=== PATIENT | female | born 1950 | race Caucasian/White ===

== ENCOUNTER → 2019-10-01 | Outpatient (CLI) | payer OTHER ==
--- NOTE | 2019-10-01 16:18 | Diagnostic Imaging Report ---
EXAMINATION: CHEST 2 VIEWS INDICATION: Cough, shortness of breath COMPARISON: None FINDINGS: LINES/TUBES:None LUNGS:Patchy airspace opacity in the right lower lobe. Small area of patchy opacity in the left lower lobe. PLEURA:No pleural effusion or pneumothorax. MEDIASTINUM:The cardiomediastinal silhouette appears normal in size and shape. Atherosclerotic calcifications of the thoracic aorta. BONES/SOFT TISSUES:No acute osseous injury. ABDOMEN:No free air under the diaphragm. IMPRESSION: Patchy opacities in the right lower lobe and to a much lesser extent in the left lower lobe, compatible aspiration and/or pneumonia in the proper clinical setting. RECOMMENDATIONS: Repeat AP and lateral chest radiographs in 6-8 weeks to assess for resolution. Signed by: Any Sullivan MD on 10/01/2019 4:15 PM
== END ==
LOC: RAD 15:38
DX: R05 Cough (principal); R06.02 Shortness of breath
CPT/HCPCS: 71046

== ENCOUNTER 2019-10-10 14:09 | Inpatient (IN) | payer OTHER ==
[~2019-10-10] VITALS: Ht 167.6 cm; Wt 78.5 kg
--- OUTSIDE RECORDS SUMMARY | 2019-10-10 14:12 | XMS REPORT ---
Author Author [facility] Address Unknown Phone Unavailable Care Team Providers Care Blood Bank Technician Name Role Phone MOUNIKA CALDERA Unavailable Unavailable Problems This patient has no known problems. Allergies, Adverse Reactions, Alerts This patient has no known allergies or adverse reactions. Medications This patient has no known medications. Results Test Description Test Time Test Comments Text Results Atomic Results Result Comments CHEST 2 VIEWS 2019-10-09 15:58:00 [place] [address] Patient Name: WEN SARGENT MR #: [id number] : 1950 Age/Sex: 69/F Req #: [id number] Adm Physician: Ordered by: MOUNIKA CALDERA MD Report #: [id number] Location: RAD Room/Bed: Procedure: [id number] DX/CHEST 2 VIEWS Exam Date: 10/09/19 Exam Time: 1525 REPORT STATUS: Signed TECHNIQUE: Frontal and lateral views of the chest. XENA CATION: 69-year-old woman with upper respiratory infection. COMPARISON: Chest radiographs 10/01/2019. FINDINGS: LINES/TUBES: None. LUNGS: The lungs are well inflated. Persistent patchy airspace opacities in the right lower lobe. Persistent questionable mild airspace opacities in left lower lung zone. PLEURA: No pleural effusion or pneumothorax. HEART AND MEDIASTINUM: The cardiomediastinal silhouette is within normal limits. Atherosclerotic calcifications in the thoracic aorta. SOFT TISSUES AND BONES: Unremarkable. IMPRESSION: Persistent right lower lobe pneumonia. Persistent questionable mild airspace opacities in the left lower lung zone may also represent pneumonia. RECOMMENDATION: Follow-up chest radiographs are recommended in 6-8 weeks for reassessment. Signed by: Percy Cowart MD on 10/09/2019 4:03 PM Dictated By: PERCY COWART MD 02 Transcribed By: Moises VICK on 10/09/19 160 COPY TO: MOUNIKA CALDERA MD CHEST 2 VIEWS 2019-10-01 16:14:00 [place] [address] Patient Name: WEN SARGENT MR #: [id number] : 1950 Age/Sex: 69/F Req #: [id number] Adm Physician: Ordered by: MOUNIKA CALDERA MD Report #: [id number] Location: [facility] Room/Bed: Procedure: [id number] DX/CHEST 2 VIEWS Exam Date: 10/01/19 Exam Time: 1549 REPORT STATUS: Signed EXAMINATION: CHEST 2 VIEWS INDICATION: Cough, shor tness of breath COMPARISON: None FINDINGS: LINES/TUBES:None LUNGS:Patchy airspace opacity in the right lower lobe. Small area of patchy opacity in the left lower lobe. PLEURA:No pleural effusion or pneumothorax. MEDIASTINUM:The cardiomediastinal silhouette appears normal in size and shape. Atherosclerotic calcifications of the thoracic aorta. BONES/SOFT TISSUES:No acute osseous injury. ABDOMEN:No free air under the diaphragm. IMPRESSION: Patchy opacities in the right lower lobe and to a much lesser extent in the left lower lobe, compatible aspiration and/or pneumonia in the proper clinical setting. RECOMMENDATIONS: Repeat AP and lateral chest radiographs in 6-8 weeks to assess for resolution. Signed by: Karen Wright MD on 10/01/2019 4:15 PM Dictated By: KAREN WRIGHT MD 1615 Transcribed By: RHONDA on 10/01/191614 COPY TO: MOUNIKA CALDERA MD
[2019-10-10 14:42] LABS: BASOPHILS # (AUTO) 0.1 (0.0-0.1); BASOPHILS % 0.9 % (0.0-1.0); EOSINOPHILS # (AUTO) 0.6 (0.0-0.4); EOSINOPHILS % 7.1 % (0.0-6.0); HEMATOCRIT 35.8 % (34.2-44.1); HEMOGLOBIN 11.4 g/dL (12.0-16.0); LYMPHOCYTES # (AUTO) 1.3 (1.0-3.2); LYMPHOCYTES % 17.1 % (18.0-39.1); MEAN CORPUSCULAR HEMOGLOBIN 31.1 pg (28-32); MEAN CORPUSCULAR HGB CONC 31.8 g/dL (31-35); MEAN CORPUSCULAR VOLUME 97.5 fL (81-99); MONOCYTES # (AUTO) 0.6 (0.2-0.8); MONOCYTES % 7.2 % (4.4-11.3); NEUTROPHILS # (AUTO) 5.3 (2.1-6.9); NEUTROPHILS % 67.3 % (38.7-80.0); PLATELET COUNT 422 x10e3/uL (140-360); RED BLOOD COUNT 3.67 x10e6/uL (3.6-5.1); RED CELL DISTRIBUTION WIDTH 13.9 % (11.7-14.4)
[2019-10-10] MEDS ORDERED: ALBUTEROL SULFATE HFA 8GM INHALATION AEROSOL INH STA (14:44)
[2019-10-10] MEDS ORDERED: ALBUTEROL SULFATE HFA 8GM INHALATION AEROSOL INH PRN (15:00)
[2019-10-10 15:03] LABS: ANION GAP 11.2 mmol/L (8-16); BLOOD UREA NITROGEN 11 mg/dL (7-26); BUN/CREATININE RATIO 15 (6-25); CALCIUM 8.8 mg/dL (8.4-10.2); CARBON DIOXIDE 28 mmol/L (22-29); CHLORIDE 103 mmol/L (98-107); CREATININE, SERUM 0.74 mg/dL (0.57-1.11); EST GLOMERULAR FILTRATION RATE > 60 ML/MIN (60-); GLUCOSE 97 mg/dL (74-118); POTASSIUM 4.2 mmol/L (3.5-5.1); SODIUM 138 mmol/L (136-145)
--- NOTE | 2019-10-10 16:20 | Diagnostic Imaging Report ---
CT of the chest, without contrast, 10/10/2019. History: Cough for 2 weeks. Comparison: Chest x-ray 10/09/2019. Technique: Multidetector CT scanning of the chest was performed from the level of the apices to the upper abdomen without contrast. Coronal and sagittal multiplanar reformations were obtained. RADIATION DOSE: Total DLP: 461 mGy*cm Dose modulation, iterative reconstruction, and/or weight based adjustment of the mA/kV was utilized to reduce the radiation dose to as low as reasonably achievable. Discussion: Evaluation is limited without IV contrast. Chest: The heart, aorta, and pulmonary vessels are normal in size. 1 cm right paratracheal lymph node is present, likely reactive. The thyroid is unremarkable. There is minimal bilateral upper lobe paraseptal emphysema. Peripheral posterior groundglass opacities are present throughout the right upper, middle, and lower lobes with patchy consolidation in the right lower lobe. There is no evidence of pleural effusion. Scattered areas of ground glass opacities are present in the peripheral aspects of the left lung. Limited evaluation of the upper abdomen shows normal adrenal glands. Bones and soft tissues: No acute abnormality. IMPRESSION: Bilateral multifocal pneumonia, most severely affecting the right lower lobe. Atypical/viral pneumonia cannot be excluded. The findings were discussed with Dr. Woodruff at 1615 on 10/10/2019. Signed by: Juan Alberto Montes De Oca on 10/10/2019 4:16 PM
[2019-10-10] MEDS ORDERED: VANCOMYCIN HCL 1GM/NS 250 ML BAG IV SCH (16:30)
[2019-10-10] MEDS: CEFEPIME 1GM/NS 0.9% 50 ML 50 ML IV SCH (16:59)
[2019-10-10] MEDS ORDERED: VANCOMYCIN 1GM/NS 250 ML 250 ML IV SCH (17:30)
[2019-10-10] MEDS ORDERED: BACLOFEN5 MG PO (17:56)
[2019-10-10] MEDS ORDERED: BENAZEPRIL HCL10 MG PO (17:56)
[2019-10-10] MEDS ORDERED: DIAZEPAM5 MG PO (17:56)
[2019-10-10] MEDS ORDERED: HYDROCODON-ACE1 EAC9 PO (17:56)
[2019-10-10] MEDS ORDERED: ESCITALOPRAM OX20 MG PO (17:56)
[2019-10-10] MEDS ORDERED: ALBUTEROL/IPRATROPIUM 3 ML NEB NEB PRN (18:45)
[2019-10-10] MEDS ORDERED: DIAZEPAM 5 MG TAB PO PRN (18:45)
[2019-10-10 20:00] VITALS: BP 114/55
[2019-10-10 20:15] VITALS: BP 114/55
[2019-10-10] MEDS: HYDROCODONE/APAP 10MG-325MG TAB PO PRN (20:30)
[2019-10-10] MEDS ORDERED: IPRATROPIUM/ALBUTEROL SULFATE 4 GM INH INH PRN (20:45)
--- NOTE | 2019-10-10 21:00 | NUR ---
pulmonary [id number] atypical pneumonia, 2 week prodrome. serum eosinophilia, ?due to abx/meds ?r/o other former heavy smoker Thanks.
--- NOTE | 2019-10-10 21:47 | Consultation ---
DATE OF CONSULTATION: 10/10/2019 Pulmonary Medicine Consult REASON FOR REFERRAL: Pneumonia. HISTORY OF PRESENT ILLNESS: Ms. Gonzalez is a pleasant 69-year-old female with pneumonia. The patient presented to [facility] after having refractoriness in condition. The patient originally had symptoms began about 2 weeks ago. The patient had shortness of breath and coughing. The patient had initial fever that she measured per that one day. She had some mild body aches. At that point, she did eventually get a chest x-ray on October 01, 2019. Due to getting Z-Pedrito and Levaquin with poor responsiveness, she came back for a followup appointment and had another chest x-ray done, which demonstrated persistence of vdlrblwl-vm-lyerd lung infiltrate. She was referred to the emergency room and for further care. CT of chest demonstrated scant left upper lobe, mostly peripheral alveolar/particular subpleural opacities that were mild, but a ceahjfyo-pp-yreja right lower lobe and some right upper lobe ground-glass/consolidative pneumonia. The patient was recommended for hospitalization. PAST MEDICAL HISTORY: Hypertension, depression, chronic back pain, hip replacement. MEDICATIONS: Medication list reviewed per the chart record. ALLERGIES: PENICILLIN. SOCIAL HISTORY: The patient smoked from age [age], two packs per day. No alcohol. No drugs. 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 She has not had any recent trips and she is mostly at home. However, her leaves the house on a daily basis for about 45 minutes to go to the grocery store. Her still works as a computer/grain mill products inspector of plants, but he is recently able to work at home. FAMILY HISTORY: Noncontributory. REVIEW OF SYSTEMS: GENERAL: No weight changes. OPHTHALMOLOGIC: No floaters. ENT: No mouth ulcers. ENDOCRINE: No thyroid disease. PULMONARY: No asthma. CARDIAC: No OR. GI: No diarrhea. : No blood in urine. NEUROLOGIC: No seizures. DERMATOLOGIC: No rash. PSYCHIATRIC: No depression. OBJECTIVE: VITAL SIGNS: Afebrile, vital signs noted, reviewed per the chart record. GENERAL: In no acute distress, alert and calm. HEENT: Normocephalic, atraumatic. NECK: Supple. Throat midline. LUNGS: Bilateral air entry, limited, rare rhonchi. CARDIOVASCULAR: S1, S2. No murmurs, rubs, or gallops. ABDOMEN: Soft, nontender. EXTREMITIES: No clubbing, no cyanosis, and no edema. INTEGUMENT: No rash. No purpura. LABORATORY DATA: White count 7.8, hematocrit 36, platelets 422. 63% neutrophils, 17% lymphocytes, 7.1% eosinophils. 4.2 potassium, 11 BUN, creatinine 0.7. IMPRESSION: 1. Pneumonia, prodrome 2 weeks symptoms. Highest differential diagnosis includes atypical viral pneumonia. However, differential diagnosis includes other community-acquired pneumonia versus other more indolent pathogens, especially noting background of serum eosinophilia with 600 cells per high-powered field. 2. Serum eosinophilia, 600 cells per high-power field or 7.1%. 3. Chronic former smoker. 4. Hypertension. 5. Depression. 6. History of back pain. PLAN: Give antibiotics for refractory pneumonia including cefepime and vancomycin. The patient will also have viral panel sent off including for novel coronavirus. The patient will have LFTs, LDH, CRP/sedimentation rate checked. The patient with unclear reasons for the eosinophilia, but could be due to antibiotics. We will repeat in short interim. Consideration of bronchoscopy can be done in the future, but we will prefer to wait for any viral panel to be done before considering. The patient is getting better she says subjectively, so we will follow noting this. Thank you very much, Dr. Luis, for this consult. Please call for questions. MD ROSIE Thornton/BEATRIZ /[id number]
[2019-10-10] MEDS: DIPHENHYDRAMINE HCL 25 MG CAP PO PRN (22:20)
[2019-10-10 23:01] VITALS: BP 114/55
[2019-10-10] MEDS ORDERED: PNEUMOCOCCAL VACCINE POLYVALENT 23 MCG/0.5 ML VIAL IM SCH (23:08)
[2019-10-10] MEDS ORDERED: INFLUENZA VIRUS VAC SPLIT INJ 0.5 ML SYR IM SCH (23:08)
[2019-10-11] VITALS (8 sets, daily range): BP systolic 117–134; BP diastolic 58–80
[2019-10-11] MEDS: CEFEPIME 1GM/NS 0.9% 50 ML 50 ML IV SCH (05:31)
[2019-10-11] MEDS: HYDROCODONE/APAP 10MG-325MG TAB PO PRN ×3 (05:32→18:40)
[2019-10-11 05:33] LABS: BASOPHILS # (AUTO) 0.1 (0.0-0.1); EOSINOPHILS # (AUTO) 0.8 (0.0-0.4); EOSINOPHILS % 11.3 % (0.0-6.0); HEMOGLOBIN 11.7 g/dL (12.0-16.0); LYMPHOCYTES # (AUTO) 1.8 (1.0-3.2); LYMPHOCYTES % 24.4 % (18.0-39.1); MEAN CORPUSCULAR HGB CONC 31.6 g/dL (31-35); MEAN CORPUSCULAR VOLUME 98.1 fL (81-99); MONOCYTES # (AUTO) 0.6 (0.2-0.8); MONOCYTES % 8.2 % (4.4-11.3); NEUTROPHILS % 54.7 % (38.7-80.0); PLATELET COUNT 396 x10e3/uL (140-360); RED BLOOD COUNT 3.77 x10e6/uL (3.6-5.1)
[2019-10-11 05:46] LABS: ANION GAP 10.2 mmol/L (8-16); BLOOD UREA NITROGEN 11 mg/dL (7-26); BUN/CREATININE RATIO 15 (6-25); CALCIUM 8.9 mg/dL (8.4-10.2); CARBON DIOXIDE 27 mmol/L (22-29); CHLORIDE 105 mmol/L (98-107); CREATININE, SERUM 0.72 mg/dL (0.57-1.11); EST GLOMERULAR FILTRATION RATE > 60 ML/MIN (60-); GLUCOSE 90 mg/dL (74-118); POTASSIUM 4.2 mmol/L (3.5-5.1); SODIUM 138 mmol/L (136-145)
[2019-10-11 06:07] LABS: ALBUMIN 2.8 g/dL (3.5-5.0); BILIRUBIN,DIRECT 0.1 mg/dL (0.0-0.5)
--- NOTE | 2019-10-11 06:24 | NUR ---
Dr. Laureano's answering service called regarding consult.
[2019-10-11] MEDS ORDERED: BACLOFEN 5 MG PO SCH (09:00)
[2019-10-11] MEDS ORDERED: NON-FORMULARY MEDICATION (Escitalopram Oxalate 20 MG) PO SCH (09:00)
[2019-10-11] MEDS: ESCITALOPRAM OXALATE 10 MG TAB PO SCH (10:00)
[2019-10-11] MEDS: BACLOFEN 10 MG TAB PO SCH ×2 (10:00→17:16)
[2019-10-11] MEDS: BENAZEPRIL HCL 10 MG TAB PO SCH (10:00)
--- NOTE | 2019-10-11 12:12 | NUR ---
Nutrition Screen Note RD Recommendation for Physician: -Continue current diet per MD. Plan of Care: RD following, monitoring for tolerance and adequacy. Recommend ONS if intake is low. Nutrition reason for involvement: (MST) Primary Diagnose(s): PNA PMH: Hypertension, depression, chronic back pain, hip replacement. Ht: 66 in Wt: 173 lb BMI: 27.9 kg/m2 IBW: [address] Assessment: (10/10) 69 YOF admitted for PNA with PMH listed above. The pt is in isolation currently, per ID protocol, unable to perform malnutrition assessment. Per nurse, the pt has been eating well, no meal assessments recorded within FS as of now. Pt was here in 2015 and was 173 lbs at that time suggesting no recent weight loss. LBM: not recorded. Chart reviewed. Labs and meds reviewed. Will continue to monitor. Current Diet: cardiac Malnutrition Evaluation (10/10) Unable to perform assessment. OR Diet Education Needs Assessment: Diet education not indicated. Nutrition Care Level: low Signed: Karo Mcintyre, RD, LD
--- NOTE | 2019-10-11 13:17 | NUR ---
Pulmonary Medicine DATE 10/11/2019 SUBJECTIVE: 2 L/min oxygen by NC patient comfortable no worsening dyspnea eating ok REVIEW OF SYSTEMS: no rash, no bleeding OBJECTIVE: VITAL SIGNS: vital signs noted, reviewed per the chart record. GENERAL: NAD, alert and calm. HEENT: Normocephalic, atraumatic. NECK: Supple. Throat midline. LUNGS: Bilateral air entry, limited, rare rhonchi. CARDIOVASCULAR: S1, S2. No murmurs, rubs, or gallops. ABDOMEN: Soft, nontender. EXTREMITIES: No clubbing, no cyanosis, no edema. INTEGUMENT: No rash. No purpura. LABORATORY DATA: wbc 7.34, plt 396, cr 0.72, k 4.2 IMPRESSION: 1. Pneumonia, 2 weeks symptoms. Highest differential diagnosis includes atypical viral pneumonia. However, differential diagnosis includes other community-acquired pneumonia versus other more indolent pathogens, especially noting background of serum eosinophilia with 600 cells per high-powered field. 2. Serum eosinophilia, 600 cells per high-power field or 7.1%. 3. Chronic former smoker. 4. Hypertension. 5. Depression. 6. Hx back pain. PLAN: Continue antibiotics for refractory pneumonia including cefepime and vancomycin Recheck CXR tomorrow to assess evolution further Follow viral panel including for novel coronavirus. Follow eosinophilia. ?due to antibiotics. Thank you very much, Dr. Luis, for this consult. Please call for questions.
[2019-10-11] MEDS: ENOXAPARIN SOD INJ 40 MG/0.4 ML SYR SC SCH (17:16)
[2019-10-11] MEDS: CEFTRIAXONE SOD 2 GM/NS 100 ML 100 ML IV SCH (17:16)
[2019-10-11] MEDS: AZITHROMYCIN 500MG/NS 250 ML 250 ML IV SCH (17:16)
--- NOTE | 2019-10-11 18:06 | Consultation ---
DATE OF CONSULTATION: REASON FOR CONSULTATION: Pneumonia, concerned about COVID-19. HISTORY OF PRESENT ILLNESS: This patient, who is a very pleasant 69-year-old female, comes to emergency room with fever and chills. The patient apparently was sick for a couple weeks ago. She had body aches. She has a chest x-ray on September 30 and she got Z-Pedrito. She was told to follow up. Chest x-ray showed moderate lung infiltrate. She was sent to the emergency room, where she had a CT scan, which showed left upper lobe infiltrate, peripheral alveolar particular opacities. The patient is being admitted. The patient does have a history of hypertension, depression, chronic back pain, and hip replacement. PAST SURGICAL HISTORY: Hip replacement. ALLERGIES: PENICILLIN. SOCIAL HISTORY: Currently, there is no smoking, drug abuse, or alcohol abuse. LABORATORY DATA: White count 7.7, hemoglobin 11, and hematocrit 35. Her respiratory panel was negative. Her COVID-19 is still pending. Her sodium 138, potassium 4.2 with creatinine 0.27. The patient is currently on Lexapro, cefepime, and vancomycin. PHYSICAL EXAMINATION: GENERAL: She is currently alert and oriented. Does not seem to be in acute distress. VITAL SIGNS: Stable, currently afebrile. There is no fever since admission. Cultures were negative. HEENT: She is not icteric. NECK: Supple. CHEST: Clear. HEART: S1 and S2. No S3, S4, or murmur. ABDOMEN: Soft. IMPRESSION: Bilateral multifocal pneumonia. Agree with COVID-19. [address] on isolation for the time being until we get it. Recommended to put her on Rocephin and azithromycin. Observe the patient clinically. We will follow. MD BIB Frias/BEATRIZ /[id number]
[2019-10-11] MEDS: DIPHENHYDRAMINE HCL 25 MG CAP PO PRN (21:13)
[2019-10-12] VITALS (8 sets, daily range): BP systolic 114–128; BP diastolic 58–67
[2019-10-12] MEDS: HYDROCODONE/APAP 10MG-325MG TAB PO PRN ×4 (04:05→23:40)
--- NOTE | 2019-10-12 07:00 | NUR ---
received in stable condition, denies pain at this time, updated on poc vocied understanding, denies pain at this time call light in reach will continue to monitor
[2019-10-12] MEDS: ESCITALOPRAM OXALATE 10 MG TAB PO SCH (08:20)
[2019-10-12] MEDS: BACLOFEN 10 MG TAB PO SCH ×2 (08:20→16:30)
[2019-10-12] MEDS: BENAZEPRIL HCL 10 MG TAB PO SCH (08:50)
--- NOTE | 2019-10-12 11:55 | Diagnostic Imaging Report ---
Examination: Single AP view of the chest. COMPARISON: CT chest 10/10/2019, chest radiograph 10/09/2019 INDICATION: Pneumonia DISCUSSION: Lungs remain well-inflated. Patchy consolidations in the right middle and lower lobes unchanged compared to prior chest radiograph. Groundglass opacities in the left lung seen on comparison CT are less conspicuous by plain radiography. No pleural effusion or pneumothorax. Stable cardiomediastinal contour with atherosclerotic calcification of the thoracic aorta. No acute osseous abnormalities. IMPRESSION: Stable findings of multifocal pneumonia, seen to better advantage on CT chest 10/10/2019. Signed by: Dr. Catracho Vuong M.D. on 10/12/2019 11:52 AM
--- NOTE | 2019-10-12 12:52 | NUR ---
Pulmonary Medicine DATE 10/12/2019 SUBJECTIVE: 100% saturation on RA RA desaturation to 93-94% with exertion often ?transient to 88 L transient and immediately went up patient comfortable feels better again eating ok REVIEW OF SYSTEMS: no rash, no bleeding OBJECTIVE: VITAL SIGNS: vital signs noted, reviewed per the chart record. GENERAL: NAD, alert and calm. HEENT: Normocephalic, atraumatic. NECK: Supple. Throat midline. LUNGS: Bilateral air entry, limited, rare rhonchi. CARDIOVASCULAR: S1, S2. No murmurs, rubs, or gallops. ABDOMEN: Soft, nontender. EXTREMITIES: No clubbing, no cyanosis, no edema. INTEGUMENT: No rash. No purpura. LABORATORY DATA: no new updates IMPRESSION: 1. Pneumonia, 2 weeks symptoms. Highest differential diagnosis includes atypical viral pneumonia. However, differential diagnosis includes other community-acquired pneumonia vs other more indolent pathogens, especially noting background of serum eosinophilia with 600 cells per high-powered field. 2. Serum eosinophilia, 600 cells per high-power field or 7.1%. 3. Chronic former smoker. 4. Hypertension. 5. Depression. 6. Hx back pain. PLAN: Continue antibiotics for refractory pneumonia. May try to transition to PO antibiotics soon Recheck CXR intermittently until clear Follow viral panel including for novel coronavirus. Multiplex PCR virus is negative. Follow eosinophilia. ?due to antibiotics. Thank you very much, Dr. Luis, for this consult. Please call for questions.
--- NOTE | 2019-10-12 15:40 | NUR ---
spoke with Dr. Luis re: pt negative results, states to notify dr ndiaye regarding transfer off of isolation or dc home, informed this nurse Dr. ndiaye is to write prescriptions for discharge
[2019-10-12] MEDS: AZITHROMYCIN 500MG/NS 250 ML 250 ML IV SCH (16:29)
[2019-10-12] MEDS: ENOXAPARIN SOD INJ 40 MG/0.4 ML SYR SC SCH (16:30)
--- NOTE | 2019-10-12 16:58 | NUR ---
paged Dr. ndiaye re: pt removed from isolation and transferred upstairs, awaiting call back
--- NOTE | 2019-10-12 17:20 | NUR ---
paged dr ndiaye re: removal of isolation order and if pt can transfer upstairs awaiting call back
[2019-10-12] MEDS: CEFTRIAXONE SOD 2 GM/NS 100 ML 100 ML IV SCH (17:36)
--- NOTE | 2019-10-12 18:13 | NUR ---
Spoke with Dr. Laureano re: removal of isolation and transfer to floor, states ok to transfer to med surge and remove isolation
--- NOTE | 2019-10-12 19:05 | NUR ---
WALKING ROUNDS PERFORMED, RECEIVED PT LAYING SEMI FOWLERS IN BED, AAOX3, RR EVEN AND NON-LABORED, ON ROOM AIR. NO S/SX OF DISTRESS NOTED. LEFT PT LAYING SEMI FOWLERS IN BED, BED IN LOW LOCKED POSITION, SIDE RAILS UPX2, CALL LIGHT AND PHONE WITHIN REACH.
--- NOTE | 2019-10-12 20:33 | NUR ---
PAGE PLACED THROUGH ANSWERING SERVICE FOR PAIN MEDICATION FOR HEADACHE. WAITING FOR CALLBACK.
--- NOTE | 2019-10-12 20:42 | NUR ---
SPOKE WITH MD MACHADO, COVERING FOR MD Sumi CALDERA CONCERNING PT REPORTS OF HEADACHE. NEW ORDERS RECEIVED.
[2019-10-12] MEDS ORDERED: IBUPROFEN 400 MG TAB PO PRN (20:45)
[2019-10-12] MEDS: DIPHENHYDRAMINE HCL 25 MG CAP PO PRN (21:12)
--- NOTE | 2019-10-12 22:10 | NUR ---
REPORT CALLED TO Madi WELDON RN FOR PATIENT TRANSFERRING TO ROOM 209.
--- NOTE | 2019-10-12 22:36 | NUR ---
PT TRANSPORTED BY WHEELCHAIR TO ROOM 209. PT IS AAOX3, RR EVEN AND NON-LABORED, ON ROOM AIR. NO S/SX OF DISTRESS NOTED.
[2019-10-13] VITALS (8 sets, daily range): BP systolic 111–138; BP diastolic 56–65
[2019-10-13] MEDS: HYDROCODONE/APAP 10MG-325MG TAB PO PRN ×3 (07:30→18:43)
[2019-10-13] MEDS: ESCITALOPRAM OXALATE 10 MG TAB PO SCH (08:41)
[2019-10-13] MEDS: BENAZEPRIL HCL 10 MG TAB PO SCH (08:41)
[2019-10-13] MEDS: BACLOFEN 10 MG TAB PO SCH ×2 (08:41→16:54)
[2019-10-13 12:26] LABS: BASOPHILS # (AUTO) 0.1 (0.0-0.1); BASOPHILS % 0.9 % (0.0-1.0); EOSINOPHILS # (AUTO) 0.9 (0.0-0.4); EOSINOPHILS % 11.3 % (0.0-6.0); HEMATOCRIT 33.9 % (34.2-44.1); HEMOGLOBIN 10.7 g/dL (12.0-16.0); LYMPHOCYTES # (AUTO) 1.4 (1.0-3.2); LYMPHOCYTES % 18.8 % (18.0-39.1); MEAN CORPUSCULAR HEMOGLOBIN 30.9 pg (28-32); MEAN CORPUSCULAR HGB CONC 31.6 g/dL (31-35); MONOCYTES # (AUTO) 0.5 (0.2-0.8); MONOCYTES % 6.9 % (4.4-11.3); NEUTROPHILS # (AUTO) 4.6 (2.1-6.9); NEUTROPHILS % 61.8 % (38.7-80.0); PLATELET COUNT 332 x10e3/uL (140-360); RED BLOOD COUNT 3.46 x10e6/uL (3.6-5.1)
[2019-10-13 12:44] LABS: ANION GAP 10.9 mmol/L (8-16); BLOOD UREA NITROGEN 13 mg/dL (7-26); BUN/CREATININE RATIO 20 (6-25); CALCIUM 8.8 mg/dL (8.4-10.2); CARBON DIOXIDE 30 mmol/L (22-29); CHLORIDE 104 mmol/L (98-107); CREATININE, SERUM 0.65 mg/dL (0.57-1.11); EST GLOMERULAR FILTRATION RATE > 60 ML/MIN (60-); GLUCOSE 83 mg/dL (74-118); POTASSIUM 4.9 mmol/L (3.5-5.1); SODIUM 140 mmol/L (136-145)
--- NOTE | 2019-10-13 13:27 | Diagnostic Imaging Report ---
EXAMINATION: CHEST 2 VIEWS INDICATION: ^bilateral pneumonia ^[id number] ^1230 ^Y negative rg virus test COMPARISON: Chest radiograph 10/12/[address] chest 10/10/2019 FINDINGS: PA and lateral views TUBES and LINES: None. LUNGS: Lungs are well inflated. Unchanged multifocal consolidation throughout the right lung. No new pulmonary edema. PLEURA: No pleural effusion or pneumothorax. HEART AND MEDIASTINUM: The cardiomediastinal silhouette is unremarkable. BONES AND SOFT TISSUES: No acute osseous lesion. Soft tissues are unremarkable. UPPER ABDOMEN: No free air under the diaphragm. IMPRESSION: Multifocal areas of pneumonia in the right lung is unchanged. Signed by: Dr. Marcela Donovan M.D. on 10/13/2019 1:23 PM
--- NOTE | 2019-10-13 13:53 | NUR ---
RESULTS ARE BACK FOR LABS AND CHEST XRAY. SPOKE TO MARNIE WITH DR. MACHADO'S ANSWERING SERVICE. WAITING FOR CALL BACK FROM PHYSICIAN
[2019-10-13] MEDS ORDERED: INFLUENZA VIRUS VAC SPLIT INJ 0.5 ML SYR IM ONE (14:00)
[2019-10-13] MEDS ORDERED: PNEUMOCOCCAL VACCINE POLYVALENT 23 MCG/0.5 ML VIAL IM ONE (14:00)
[2019-10-13] MEDS: CEFEPIME 1GM/NS 0.9% 50 ML 50 ML IV SCH ×2 (15:24→21:17)
--- NOTE | 2019-10-13 15:49 | NUR ---
Pulmonary Medicine DATE 10/13/2019 SUBJECTIVE: patient still with excess SOB difficulty sitting in shower chair during shower 2 L/min oxygen eating ok REVIEW OF SYSTEMS: no rash, no bleeding OBJECTIVE: VITAL SIGNS: vital signs noted, reviewed per the chart record. GENERAL: NAD, alert and calm. HEENT: Normocephalic, atraumatic. NECK: Supple. Throat midline. LUNGS: Bilateral air entry, limited, rare rhonchi. CARDIOVASCULAR: S1, S2. No murmurs, rubs, or gallops. ABDOMEN: Soft, nontender. EXTREMITIES: No clubbing, no cyanosis, no edema. INTEGUMENT: No rash. No purpura. LABORATORY DATA: k 4.9, cr 0.66. wbc 7.50, hct 33.9, plt 332 IMPRESSION: 1. Pneumonia, 2 weeks symptoms. Highest differential diagnosis includes atypical, probably viral pneumonia. However, differential diagnosis includes other community-acquired pneumonia vs other more indolent pathogens, especially noting background of serum eosinophilia with 600 cells per high-powered field. 2. Serum eosinophilia, 600 cells per high-power field or 7.1%. ?due to medications 3. Chronic former smoker. 4. Hypertension. 5. Depression. 6. Hx back pain. PLAN: Continue antibiotics for refractory pneumonia. May try to transition to PO antibiotics soon Recheck CXR intermittently until clear Novel coronavirus PCR negative. Multiplex PCR virus is negative. Follow eosinophilia. ?due to antibiotics. Mobilize Thank you very much, Dr. Luis, for this consult. Please call for questions.
[2019-10-13] MEDS: LEVOFLOXACIN 750MG/D5W 150ML 150 ML IV SCH (16:13)
[2019-10-13] MEDS: ENOXAPARIN SOD INJ 40 MG/0.4 ML SYR SC SCH (16:54)
--- NOTE | 2019-10-13 17:28 | Progress Note ---
DATE: SUBJECTIVE: Ms. Gonzalez is doing better. There are no new complaints. REVIEW OF SYSTEMS: HEENT: Negative. PULMONARY: Negative. CARDIAC: Negative. LABORATORY DATA: Reviewed, her COVID-19 was negative. Cultures are negative. PHYSICAL EXAMINATION: GENERAL: Currently alert, comfortable. VITAL SIGNS: Stable, currently afebrile. HEENT: She is not icteric. NECK: Supple. CHEST: Clear. HEART: S1 and S2. ABDOMEN: Soft. IMPRESSION: Atypical pneumonia. Continue current choice of IV antibiotic. Clinically stable, can discharge home with oral Levaquin 500 mg p.o. daily. Follow up with chest x-ray in 2 weeks. MD BIB Frias/BEATRIZ /[id number]
[2019-10-13] MEDS ORDERED: CEFEPIME 1GM/NS 0.9% 50 ML 50 ML IV SCH (21:00)
[2019-10-13] MEDS: DIPHENHYDRAMINE HCL 25 MG CAP PO PRN (21:18)
[2019-10-14 00:10] VITALS: BP 123/56
[2019-10-14] MEDS: HYDROCODONE/APAP 10MG-325MG TAB PO PRN ×3 (00:55→13:15)
[2019-10-14 05:24] VITALS: BP 130/73
[2019-10-14 07:56] VITALS: BP 139/63
[2019-10-14] MEDS: BACLOFEN 10 MG TAB PO SCH (08:04)
[2019-10-14] MEDS: ESCITALOPRAM OXALATE 10 MG TAB PO SCH (08:04)
[2019-10-14] MEDS: CEFEPIME 1GM/NS 0.9% 50 ML 50 ML IV SCH (08:04)
[2019-10-14 08:30] VITALS: BP 139/63
[2019-10-14] MEDS: BENAZEPRIL HCL 10 MG TAB PO SCH (09:00)
--- NOTE | 2019-10-14 11:25 | NUR ---
Oxygen saturation on RA is 88%. Per Dr. Canela patient will require home oxygen before discharging home.
--- NOTE | 2019-10-14 11:50 | Discharge Summary ---
ADMIT DIAGNOSIS: Bilateral pneumonia. DISCHARGE DIAGNOSIS: Right-sided pneumonia, resolving. HOSPITAL COURSE: A 69-year-old white woman, who is initially admitted to [facility] with diagnosis of bilateral pneumonia. During hospitalization, the patient underwent a respiratory viral panel, which was completely negative and this include influenza A and B by PCR. She also underwent COVID-19 testing by PCR, that also was negative. The patient improved clinically with intravenous antibiotics, namely with cefepime and levofloxacin. Her hospitalization was unremarkable. Her condition on discharge was stable. On day of discharge, the patient underwent chest x-ray, which revealed multifocal areas of pneumonia in the right lung. The patient was much currently improved on the day of discharge. On the day of discharge, the patient's white blood cell count 7500 with 61% segmenters, segmented neutrophils. Also on day of discharge her oxygen saturation was 88% at rest on room air. CONDITION ON DISCHARGE: Stable. DISCHARGE MEDICATIONS: 1. Levofloxacin 750 mg daily for 10 days. 2. Baclofen 5 mg daily p.r.n. pain. 3. Benazepril 10 mg daily. 4. Diazepam 5 mg daily as needed for anxiety. 5. Lexapro 20 mg daily. 6. Hydrocodone/acetaminophen 10/325 one every 6 hours p.r.n. pain. 7. O2 at 2 liters/min continuous. FOLLOWUP INSTRUCTIONS: The patient was instructed to follow up with Dr. Didier Luis, her primary care doctor within 7 to 10 days. MD SHAE McintyreO/BEATRIZ /[id number] cc: MD Jodie Moreno MD MTDD
[2019-10-14 12:33] VITALS: BP 137/60
--- NOTE | 2019-10-14 13:10 | NUR ---
ORDER RECEIVED FOR HOME O22L/NC. CALL TO SPEAK W THE PT. STATES SHE HAS NOT HAD O2 IN THE PAST AND HAS NO DME. DISCUSSED CHOICE. PT GAVE CONSENT FOR [facility] TO DELIVER O2. CALL TO REINIER PORTILLO @ [phone]. REFERRAL SENT TO [facility] @ OFF: [phone] / FAX: [phone].
[2019-10-14] MEDS: LEVOFLOXACIN 750MG/D5W 150ML 150 ML IV SCH (14:40)
[2019-10-14] MEDS ORDERED: LEVAQUIN500 MG PO (15:45)
--- NOTE | 2019-10-14 16:27 | NUR ---
portable oxygen tank was delivered and dc instructions and prescriptions were given to the patient. She verbalized understanding. IV was removed from right forearm
--- NOTE | 2019-10-15 05:28 | Progress Note ---
DATE: 10/13/2019 CHIEF COMPLAINT/HISTORY OF PRESENT ILLNESS: This is a 69-year-old white woman, who is primary treating diagnosis of bilateral pneumonia. On admission, she was screened for COVID-19 infection, but the test was negative. She was also screen for respiratory viral panel that included influenza A and B and those as well were all negative. The patient's hospitalization has been unremarkable. The patient had chest x-ray performed on October 12, 2019, that revealed findings consistent with multifocal pneumonia. The patient states she feels much better. REVIEW OF SYSTEMS: As per HPI. PHYSICAL EXAMINATION: GENERAL: She is awake, alert, and fluent. She is very pleasant and cooperative. VITAL SIGNS: Blood pressure is 138/66, pulse 78, respiratory rate 18, temperature 96.5, and oxygen saturation 97% on 2 L oxygen. She is 94% on room air. Height 5 feet 6 inches, weight 150 pounds, BMI 27. INTEGUMENT: Skin is warm and dry. No pallor, jaundice, or diaphoresis. NECK: Supple. CARDIOVASCULAR: Distant heart sounds. Regular rate and rhythm. LUNGS: Coarse breath sounds bilaterally. ABDOMEN: Benign. EXTREMITIES: No edema or deformity. NEURO: Intact. DIAGNOSES: 1. Multifocal pneumonia, resolving. 2. Hypertensive heart disease. PLAN: 1. We will order a chest x-ray. 2. Check white blood cell count. 3. We may discharge the patient home with five days of oral levofloxacin. I spent 20 minutes in the care of the patient. MD DAVID Mcintyre/BEATRIZ /[id number] MTDMeredith
== END 2019-10-14 16:40 | disposition home or self-care (01) | DRG 194 ==
LOC: ER 14:09 → ERHOLD 16:34 → IMCU 19:35 → MED/SURG2 10-12 22:38
DX: J12.9 Viral pneumonia, unspecified (principal); F32.0 Major depressive disorder, single episode, mild; J18.1 Lobar pneumonia, unspecified organism; I10 Essential (primary) hypertension; F32.9 Major depressive disorder, single episode, unspecified; Z87.891 Personal history of nicotine dependence; G89.29 Other chronic pain; I11.9 Hypertensive heart disease without heart failure
CPT/HCPCS: 36415; 71045; 71046; 71250; 80048; 80076; 82550; 83615; 85025; 85651; 87040; 87633; 87635; 90732; 99284; J0456; J0692; J0696; J1650; J3370

== ENCOUNTER → 2019-10-23 | Outpatient (CLI) | payer OTHER ==
[~2019-10-23] MED LIST: BACLOFEN5 MG PO; BENAZEPRIL HCL10 MG PO; DIAZEPAM5 MG PO; ESCITALOPRAM OX20 MG PO; HYDROCODON-ACE1 EAC9 PO; LEVAQUIN500 MG PO
--- NOTE | 2019-10-23 13:47 | Diagnostic Imaging Report ---
EXAMINATION: CHEST 2 VIEWS INDICATION: Chest congestion COMPARISON: Chest radiograph 10/05/2019 FINDINGS: LINES/TUBES:None LUNGS:The lungs are hyperinflated. Interval increase in patchy airspace opacities involving the right lung. PLEURA:No pleural effusion or pneumothorax. MEDIASTINUM:The cardiomediastinal silhouette appears unchanged in size and shape. BONES/SOFT TISSUES:No acute osseous injury. ABDOMEN:No free air under the diaphragm. IMPRESSION: Interval increase in patchy airspace opacities of the right lung, concerning for worsening pneumonia. Signed by: Any Sullivan MD on 10/23/2019 1:43 PM
== END ==
LOC: RAD 12:42
DX: R09.89 Other specified symptoms and signs involving the circulatory and respiratory systems (principal)
CPT/HCPCS: 71046

== ENCOUNTER → 2019-11-15 | Outpatient (CLI) | payer OTHER ==
--- NOTE | 2019-11-15 16:26 | Diagnostic Imaging Report ---
X-ray chest PA and lateral History: Recent pneumonia. Right-sided chest pain for a day Comparison: X-ray chest 10/23/2019 Findings: There is a triangular patch of pleural based opacity in the right upper/midlung zone consistent with the recent history of pneumonia. This is much improved compared with the previous x-ray. The aeration of the remainder of the right upper lung zone is significantly improved compared with the previous x-ray. There is near resolution of the infiltrates in the right mid and lower lung zones. There is no pleural effusion. There is no pneumothorax. The left lung shows no significant disease. There is elevation of the right hemidiaphragm which appears to be on a chronic basis. No other significant change in the appearance of the cardiomediastinal silhouette. No acute bony changes visualized. Impression: Significant improvement in the airspace disease in the right lung. No new acute abnormality. Signed by: Cesar Mazariegos MD on 11/15/2019 4:23 PM
== END ==
LOC: RAD 14:42
DX: Z09 Encounter for follow-up examination after completed treatment for conditions other than malignant neoplasm (principal); J18.9 Pneumonia, unspecified organism
CPT/HCPCS: 71046